=== PATIENT | female | born 1945 | race Caucasian/White ===

== ENCOUNTER → 2019-03-13 13:57 | Outpatient (BNVA) | payer MEDICARE, BC, SELFPAY | PROVIDERS: PCP Family Medicine; Visit Provider Family Medicine | DX: J84.9 Interstitial pulmonary disease, unspecified (principal); E04.1 Nontoxic single thyroid nodule; E11.9 Type 2 diabetes mellitus without complications; C44.91 Basal cell carcinoma of skin, unspecified | CPT/HCPCS: 36415; 80053; 83036; 84439; 84443 ==

== ENCOUNTER → 2019-03-20 15:57 | Outpatient (BNVA) | payer MEDICARE, BC, SELFPAY | PROVIDERS: PCP Family Medicine; Visit Provider Family Medicine | DX: R09.02 Hypoxemia (principal); J84.9 Interstitial pulmonary disease, unspecified | CPT/HCPCS: 80053; 84439; 84443 ==

== ENCOUNTER 2019-03-28 15:14 | Outpatient (CLI) | payer MEDICARE, BC, SELFPAY ==
--- NOTE | 2019-03-28 15:45 | US_ITS ---
WS: [id number] ULTRASOUND THYROID TECHNIQUE: Ultrasound of the thyroid. CLINICAL INFORMATION: Thyroid nodule COMPARISON: None. FINDINGS: Thyroid: Right and left thyroid lobes are normal in size and heterogeneous in echotexture. Right thyroid lobe: 4.9 cm x 1.7 cm x 3.1 cm 3 hypoechoic subcentimeter nodules the largest measuring 6.6 x 4.3 x 4.5 mm Left thyroid lobe: 4.7 cm x 1.7 cm x 1.8 cm. 2 hypoechoic slightly complex nodules measuring 9.3 x 5.7 x 0.4 mm and 9.3 x 6.0 x 6.2 mm Isthmus: 0.4 mm. Cervical lymphadenopathy: None. US/US thyroid 24177 IMPRESSION: 1. A few small bilateral thyroid nodules largest in the left measuring 9.3 x 6 .0 x6.2 mm. Recommend 12 month follow-up.
== END 2019-03-28 15:15 | disposition home or self-care (01) ==
LOC: RAD 15:16
PROVIDERS: Family Provider Family Medicine; Visit Provider Family Medicine
DX: E04.2 Nontoxic multinodular goiter (principal)
CPT/HCPCS: 76536

== ENCOUNTER → 2019-03-31 14:01 | Outpatient (BNVA) | payer MEDICARE, BC, SELFPAY | PROVIDERS: Family Provider Family Medicine; Visit Provider Family Medicine | DX: Z01.89 Encounter for other specified special examinations (principal); E11.9 Type 2 diabetes mellitus without complications; E04.1 Nontoxic single thyroid nodule; I10 Essential (primary) hypertension | CPT/HCPCS: 80053; 84439; 84443 ==

== ENCOUNTER → 2019-08-28 13:27 | Outpatient (BNVA) | payer MEDICARE, BC, SELFPAY | PROVIDERS: Family Provider Family Medicine; PCP Family Medicine; Visit Provider Family Medicine | DX: E11.9 Type 2 diabetes mellitus without complications (principal); J84.9 Interstitial pulmonary disease, unspecified | CPT/HCPCS: 83036 ==

== ENCOUNTER → 2019-11-07 10:48 | Outpatient (BNVA) | payer MEDICARE, BC, SELFPAY | PROVIDERS: Family Provider Family Medicine; PCP Family Medicine; Visit Provider Family Medicine | DX: K92.1 Melena (principal) | CPT/HCPCS: G0328 ==

== ENCOUNTER → 2019-12-08 16:48 | Outpatient (BNVA) | payer MEDICARE, BC, SELFPAY | PROVIDERS: PCP Family Medicine; Visit Provider Surgery | DX: Z20.828 Contact with and (suspected) exposure to other viral communicable diseases (principal) | CPT/HCPCS: 87635 ==

== ENCOUNTER 2019-12-12 07:55 | Day surgery (SDC) | payer MEDICARE, BC, SELFPAY ==
[2019-12-12 09:11] VITALS: BP 135/92; PULSE 109; RESP 20; TEMP 36; O2SAT 92
[2019-12-12] MEDS: sodium chloride 0.9% 1,000 ML 30 ML IV (09:22)
[2019-12-12 09:24] LABS: Glucose Point of Care 131 mg/dL (70-110)
--- NOTE | 2019-12-12 09:24 | P.ANESASSM_ITS ---
Pre-Anesthetic Assessment Pre-Anesthetic Assessment: Height/Weight: Height 1.47 m Weight 60.781 kg Temp Pulse Resp BP Pulse Ox 96.8 F L 109 H 20 H 135/92 92 12/12/19 09:11 12/12/19 09:11 12/12/19 09:11 12/12/19 09:11 12/12/19 09:11 Preop Diagnosis: hematochezia Proposed Procedure: Operation Date: 12/12/19 09:30 Proposed Procedures p Colonoscopy 70180 K92.1(Not Applicable) - Larry Taylor MD Familial anesthetic complications: none Was Beta Lacey taken within 24 hours: N/A Last intake: Intake Last Liquid Date 12/11/19 Last Liquid Time 16:00 Last Solid Date 12/10/19 Last Solid Time 17:00 Social: Social History: No alcohol and No tobacco Exam: Pre-Anes Outpt Exam: alert, oriented x 3, clear to auscultation bilaterally and regular rate & rhythm Airway: Cervical ROM: WNL MP: 4 Dentition: Full Additional comments: small mouth opening Pulmonary: Comments: wears oxygen at night (3 L NC) d/t recent unknown virus that affected her lungs (this was in february, my lungs looked like ground glass. no need for intubation). In june ultrasonic tester told her she was fine. CV/HEM: CV/HEM: HTN Metabolic: Metabolic: DM and Thyroid (nodules) Anesthetic Plan: ASA status: 3 Anesthesia: MAC Risk of > 500 ml blood loss (7ml/kg in children): No Meds/Allergies Current Medications: Current Medications Generic Name Dose Route Start Last Admin Trade Name Freq PRN Reason Stop Dose Admin Sodium Chloride 1,000 mls @ 30 ml s/hr 12/12/19 08:15 12/12/19 09:22 Sodium Chloride 0.9% IV 12/13/19 08:14 30 mls/hr .Q24H HECTOR Administration PFSH Anesthesia PFSH: Medical History Interstitial lung disease Thyroid nodule Type 2 diabetes mellitus Surgical History History of 2 sections History of carpal tunnel surgery bilateral Family History Mother No problems noted. Father CAD (coronary artery disease) Social History Smoking and tobacco status: never smoked Alcohol intake: current Alcohol intake frequency: holidays/special occasions only Alcohol type: hard liquor Data Anesthesia Other Labs: Laboratory Results - last 48 hr 12/12/19 09:20 POC Glucose 131 Cardiac Studies: No Data to Display
--- NOTE | 2019-12-12 09:47 | W.PM.OPSUD ---
Surgery/Procedure H&P Update DATE OF PROCEDURE: December 12, 2019 DATE H&P PERFORMED: 11/17/19 H&P UPDATE INFORMATION: I have reviewed H&P completed within last 30 days, I have examined patient prior to procedure and No changes to prior documentation PREOP DIAGNOSIS: hematochezia PLANNED PROCEDURE: Operation Date: 12/12/19 09:30 Proposed Procedures p Colonoscopy 05701 K92.1(Not Applicable) - Larry Taylor MD
[2019-12-12 10:41] VITALS: BP 155/76; PULSE 92; RESP 18; TEMP 36.4; O2SAT 96
[2019-12-12 10:57] VITALS: BP 128/81; PULSE 92; RESP 16; O2SAT 93
--- NOTE | 2019-12-12 11:05 | ANE.PACU2 ---
Inpatient post-anesthesia follow up: Airway intact: Yes Vital signs: Temperature 97.5 F Pulse Rate 92 Respiratory Rate 16 Blood Pressure 128/81 Pulse Oximetry 93 Oxygen Delivery Me thod Room Air Oxygen Flow Rate Fraction of Inspir ed Oxygen Hydration adequate: Yes Nausea and vomiting: No Pain level: 1 Mental status: Baseline
== END 2019-12-12 11:08 | disposition home or self-care (01) ==
PROVIDERS: PCP Family Medicine; Visit Provider Surgery
PROC: 0DJD8ZZ Inspection of Lower Intestinal Tract, Via Natural or Artificial Opening Endoscopic (ICD-10-PCS; CPT 45378; principal; 2019-12-12 09:30)
DX: K92.1 Melena (principal); D12.2 Benign neoplasm of ascending colon; K57.30 Diverticulosis of large intestine without perforation or abscess without bleeding; K64.8 Other hemorrhoids; Z99.81 Dependence on supplemental oxygen; I10 Essential (primary) hypertension; E11.9 Type 2 diabetes mellitus without complications; Z79.84 Long term (current) use of oral hypoglycemic drugs
CPT/HCPCS: 12345; 36416; 45385; 82962; 88305; J2704; J7030

== ENCOUNTER → 2020-02-15 16:12 | Outpatient (BNVA) | payer MEDICARE, BC, SELFPAY | PROVIDERS: PCP Family Medicine; Visit Provider Family Medicine | DX: E11.9 Type 2 diabetes mellitus without complications (principal) | CPT/HCPCS: 83036 ==

== ENCOUNTER → 2020-03-13 14:27 | Outpatient (BNVA) | payer MEDICARE, BC, SELFPAY | PROVIDERS: PCP Family Medicine; Visit Provider Internal Medicine Cardiovascular Disease | DX: R06.00 Dyspnea, unspecified (principal); R06.02 Shortness of breath; I10 Essential (primary) hypertension | CPT/HCPCS: 80053; 83735; 83880; 85025 ==

== ENCOUNTER → 2020-03-25 13:04 | Outpatient (BNVA) | payer MEDICARE, BC, SELFPAY | PROVIDERS: PCP Family Medicine; Visit Provider Internal Medicine Cardiovascular Disease | DX: I10 Essential (primary) hypertension (principal); R06.00 Dyspnea, unspecified | CPT/HCPCS: 80048; 83735; 83880 ==

== ENCOUNTER 2020-03-28 14:48 | Outpatient (CLI) | payer MEDICARE, BC, SELFPAY ==
--- NOTE | 2020-03-28 15:00 | USCV_ITS ---
Eddie Dumont Age: 74 Gender: F : 1945 Exam Date: 03/28/2020 15:10 Ordering Phys: Santa Sewell MD ([email or web address]) Technologist: Pradeep Romero Exam Location: [facility] [place] Indication: DYSPNEA BP: 176 / 72 HR: 65 Rhythm: Sinus Technical Quality: Fair MEASUREMENTS (Male / Female) Normal Values 2D ECHO LV Diastolic Diameter PLAX 2.9 cm 4.2 - 5.9 / 3.9 - 5.3 cm LV Systolic Diameter PLAX 2.0 cm IVS Diastolic Thickness 1.1 cm 0.6 - 1.0 / 0.6 - 0.9 cm IVS Systolic Thickness 1.7 cm LVPW Diastolic Thickness 1.2 cm 0.6 - 1.0 / 0.6 - 0.9 cm LVPW Systolic Thickness 1.4 cm LVOT Diameter 2.0 cm LV Ejection Fraction 2D Teich 60.5 % LV Ejection Fraction MOD 2C 67.6 % LV Ejection Fraction 2C AL 69.4 % LA Diameter 2.7 cm LA Width 2.9 cm LA Height 3.7 cm RA Width 2.5 cm RA Height 3.5 cm Aorta at Sinotubular Diameter 2.0 cm M-MODE LV Diastolic Diameter MM 2.8 cm 4.2 - 5.9 / 3.9 - 5.3 cm LV Systolic Diameter MM 1.9 cm LV Ejection Fraction MM Teich 64.5 % IVS Diastolic Thickness MM 1.5 cm 0.6 - 1.0 / 0.6 - 0.9 cm IVS Systolic Thickness MM 1.5 cm LVPW Diastolic Thickness MM 1.7 cm 0.6 - 1.0 / 0.6 - 0.9 cm LVPW Systolic Thickness MM 2.2 cm Aortic Annulus Diameter 2.3 cm LA Ao Ratio MM 1.3 MV E Point Septal Separation 0.3 cm DOPPLER AV Peak Velocity 134.0 cm/s LVOT Peak Velocity 99.0 cm/s AV Area Cont Eq vti 2.5 cm squared AV Area Cont Eq pk 2.4 cm squared MV Area PHT 3.6 cm squared Mitral E to A Ratio 0.7 MV E' Velocity 63.0 cm/s TR Peak Velocity 142.0 cm/s TR Peak Gradient 8.1 mmHg PV Peak Velocity 110.0 cm/s RV Acceleration Time 0.1 s RV Ejection Time 0.2 s RV AcT/ET 0.3 FINDINGS Left Ventricle Normal left ventricular size, systolic function and wall thickness, with no regional wall motion abnormalities. Left ventricular ejection fraction is estimated at 65-70 %. Grade I diastolic dysfunction (abnormal relaxation filling pattern), normal to mildly elevated filling pressures. Right Ventricle Normal right ventricular size and systolic function. Right ventricular systolic pressure 11 mmHg. Right Atrium Normal right atrial size. Left Atrium Mildly increased left atrial size. Mitral Valve Mild mitral annular calcification. Mildly thickened mitral valve. No mitral valve stenosis. Trace mitral valve regurgitation. Aortic Valve Aortic valve not well visualized. No aortic valve stenosis. No aortic valve regurgitation. Tricuspid Valve Structurally normal tricuspid valve. No tricuspid valve stenosis. Trace tricuspid valve regurgitation. Pulmonic Valve Structurally normal pulmonic valve. No pulmonary valve stenosis. No significant pulmonary valve regurgitation. Pericardium No pericardial effusion. Echo free space anterior to the right ventricle likely represents a fat pad. Aorta Normal-sized aortic root. Normal-sized inferior vena cava. CONCLUSIONS 1. Normal left ventricular size, systolic function and wall thickness, with no regional wall motion abnormalities. Left ventricular ejection fraction is estimated at 65-70 %. Grade I diastolic dysfunction (abnormal relaxation filling pattern), normal to mildly elevated filling pressures. 2. Normal right ventricular size and systolic function. 3. No significant valvular abnormality. 4. Normal pulmonary artery pressure. 5. No prior similar studies to compare. Santa Sewell MD (Electronically Signed) Final Date: 03 April 2020 10:31 S
== END 2020-03-28 14:49 | disposition home or self-care (01) ==
PROVIDERS: PCP Family Medicine; Visit Provider Internal Medicine Cardiovascular Disease
DX: R06.00 Dyspnea, unspecified (principal)
CPT/HCPCS: 93306

== ENCOUNTER 2020-05-29 07:59 | Outpatient (CLI) | payer MEDICARE, BC, SELFPAY ==
[2020-05-29 08:11] VITALS: BMI 27.1
--- NOTE | 2020-05-29 08:16 | ECG_ITS ---
[facility] Test Date: 2020-05-29 Pat Name: Eddie Dumont Department: Room: Gender: Female Lens Inspector: Olamide Boothe : 1945 Requested By: Santa Sewell Order Number: [id number] Harsh MD: Santa Sewell M.D. Interpretive Statements NAME OF STUDY: EXERCISE SESTAMIBI STRESS TEST INDICATION: Chest Pain Baseline blood pressure of 195/95 mm Hg, heart rate 85 beats per minute and oxygen saturation 91%. EKG showed normal sinus rhythm, left anterior fascicular block. Possible old anteroseptal infarct. The patient exercised for 2 minutes 43 seconds on a standard Cristo protocol. Patient attained a maximum heart rate of 135 beats per minute(92% of the maximum predicted heart rate) with a blood pressure at the peak exercise of 207/59 mmHg mm Hg and oxygen saturation 85%. The EKG at the peak exercise revealed sinus tachycardia with no significant ST-T wave changes. Patient did not have any chest pain or any significant arrhythmis with the exercise During the recovery phase, there were no new changes. Blood pressure at the end of the recovery phase was 177/88 mm Hg with a heart rate of 100 beats per minute and oxygen saturation 94%. CONCLUSION: 1. Normal EKG response to treadmill exercise. 2. No exercise-induced chest pain or cardiac arrhythmia 3. Decreased exercise tolerance, attained a maximum of 4.6 METs. Maximum VO2 of 16.1 mL/kg/min. 4. Baseline hypertension with normal response to exercise. Patient's oxygen saturation did decrease to 85% at peak exercise. 5. Perfusion scan will be documented separately. Electronically Signed On 05-29-2020 17:19:16 CDT by Santa Sewell M.D. [id number]
--- NOTE | 2020-05-29 08:17 | NMCV_ITS ---
NM terrance perf SPECT r/s* [id number] Eddie Dumont Age: 75 Gender: F : 1945 Exam Date: 05/29/2020 08:17 Ordering Phys: Santa Sewell MD ([email or web address]) Technologist: DEWAYNE Malave Exam Location: [facility] Indications: DYSPNEA STRESS TEST [facility] IMAGE PROTOCOL Rest/Stress 1 Exercise Day Radiopharmaceutical Dose (mCi) Administration Site Administered by Rest: Tc-99m 10.3 IV DEWAYNE Jeffers Sestamibi Stress:Tc-99m 32.9 IV DEWAYNE Jeffers Sestamibi Rest: 29-May-2020 60 Discovery 630 Stress: 29-May-2020 30 Discovery 630 Radiopharmaceutical was injected at 87% maximum heart rate. Images obtained in supine and prone position. SPECT RESULTS Technical Quality: Excellent Raw Data Analysis: Normal Image Corrections: No attenuation or motion correction applied Summed Stress Score: 0 Summed Rest Score: 0 Summed Difference Score: 0 PERFUSION FINDINGS SPECT images demonstrate homogeneous tracer distribution throughout the myocardium. FUNCTIONAL RESULTS (calculated via Gated SPECT) Stress Image LV EF (%): 87 Stress EDV (mL):30 TID: 0.77 Stress ESV (mL):4 FUNCTIONAL FINDINGS: The left ventricle is normal in size. Transient Ischemia Dilatation of 0.77. There is normal left ventricular systolic function. The left ventricular ejection fraction is hyperdynamic with a value of 87% with no regional wall motion abnormality. There is hyperdynamic left ventricular wall thickening. IMPRESSIONS 1. Myocardial perfusion imaging is normal. 2. Overall left ventricular systolic function is normal without regional wall motion abnormalities. 3. The left ventricular ejection fraction is hyperdynamic with a value of 87%. 4. Normal EKG response to exercise. Decreased exercise tolerance, exaggerated heart rate response and desaturation at peak exercise. Refer to separate report for details. 5. This study suggests a low likelihood of angiographically significant coronary artery disease. Santa Sewell MD (Electronically Signed) Final Date: 29 May 2020 17:22 S
[2020-05-29 10:08] VITALS: BP 192/74; PULSE 100
== END 2020-05-29 08:00 | disposition home or self-care (01) ==
LOC: CDL 08:00
PROVIDERS: PCP Family Medicine; Visit Provider Internal Medicine Cardiovascular Disease
DX: R06.00 Dyspnea, unspecified (principal); R07.9 Chest pain, unspecified
CPT/HCPCS: 78452; 93017; A9500

== ENCOUNTER → 2020-06-21 15:00 | Outpatient (BNVA) | payer MEDICARE, BC, SELFPAY | PROVIDERS: PCP Family Medicine; Visit Provider Internal Medicine Cardiovascular Disease | DX: Z20.822 Contact with and (suspected) exposure to COVID-19 (principal) | CPT/HCPCS: 87635 ==

== ENCOUNTER 2020-06-27 13:35 | Outpatient (CLI) | payer MEDICARE, BC, SELFPAY ==
--- NOTE | 2020-06-27 14:47 | PFTS_ITS ---
Date of Study:06/27/20 Date of Dictation: MECHANICS: Forced vital capacity (FVC) is reduced. Forced expiratory volume in one second (FEV1) is reduced. FEV1/FVC is normal. FLOW VOLUME LOOP: Narrow. LUNG VOLUMES: Total lung capacity (TLC) is increased. Residual volume (RV) is increased. DIFFUSING CAPACITY FOR CARBON MONOXIDE: Moderately reduced. INTERPRETATION: The pulmonary function tests are consistent with nonspecific ventilatory limitation. The prebronchodilator spirometry is consistent with moderately severe restriction, however, the total lung capacity is elevated. The patient likely has a combined obstructive and restrictive ventilatory defect. Postbronchodilator spirometry was not performed. Lung volumes are consistent with hyperinflation and air trapping. Gas exchange (DLCO) is moderately reduced. MTDD
== END 2020-06-27 13:36 | disposition home or self-care (01) ==
LOC: RT 13:37
PROVIDERS: PCP Family Medicine; Visit Provider Internal Medicine Cardiovascular Disease
DX: J84.9 Interstitial pulmonary disease, unspecified (principal); R09.02 Hypoxemia
CPT/HCPCS: 94010; 94726; 94729

== ENCOUNTER → 2020-08-19 11:12 | Outpatient (BNVA) | payer MEDICARE, BC, SELFPAY | PROVIDERS: PCP Family Medicine; Visit Provider Family Medicine | DX: E11.9 Type 2 diabetes mellitus without complications (principal); I10 Essential (primary) hypertension | CPT/HCPCS: 83036 ==

== ENCOUNTER → 2021-11-12 12:13 | Outpatient (BNVA) | payer MEDICARE, BC, SELFPAY | PROVIDERS: PCP Family Medicine; Visit Provider Nurse Practitioner Family | DX: E11.9 Type 2 diabetes mellitus without complications (principal); Z78.0 Asymptomatic menopausal state; M54.50 Low back pain, unspecified; R53.83 Other fatigue | CPT/HCPCS: 81000; 81003; 87086 ==

== ENCOUNTER 2021-12-11 13:31 | Outpatient (CLI) | payer MEDICARE, BC, SELFPAY ==
--- NOTE | 2021-12-11 14:22 | XRR_ITS ---
PROCEDURE INFORMATION: Exam: XR Lumbosacral Spine Exam date and time: 12/11/2021 2:28 PM Age: 76 years old Clinical indication: Low back pain; Patient HX: Pain in lower back for seven weeks. Burning sensation. Pain anteriorly around groin as well; Additional info: M54.50 - TECHNIQUE: Imaging protocol: Radiologic exam of the lumbosacral spine. Views: 2 or 3 views. COMPARISON: No relevant prior studies available. FINDINGS: Bones/joints: T12 and L1 vertebral body compression fractures without retropulsion of bony fragments, age indeterminate. Multilevel productive degenerative endplate changes throughout the spine. Mild to moderate multilevel disc space narrowing throughout the spine, greatest posteriorly. Minimal lumbar spine dextrocurvature. Soft tissues: Unremarkable. XR/XR lumbar spine 2-3V* [id number] IMPRESSION: 1. T12 and L1 vertebral body compression fractures without retropulsion of bony fragments, age indeterminate. 2. Multilevel productive degenerative endplate changes throughout the spine. 3. Mild to moderate multilevel disc space narrowing throughout the spine, greatest posteriorly. 4. Minimal lumbar spine dextrocurvature.
== END 2021-12-11 13:32 | disposition home or self-care (01) ==
PROVIDERS: PCP Family Medicine; Visit Provider Nurse Practitioner Family
DX: M54.50 Low back pain, unspecified (principal)
CPT/HCPCS: 72100

== ENCOUNTER → 2021-12-18 16:29 | Outpatient (BNVA) | payer MEDICARE, BC, SELFPAY | PROVIDERS: PCP Family Medicine; Visit Provider Physician Assistant | DX: M54.50 Low back pain, unspecified (principal); M79.605 Pain in left leg; M25.561 Pain in right knee; E11.9 Type 2 diabetes mellitus without complications | CPT/HCPCS: 73560; 73565; 99204; J0702; J3490 ==

== ENCOUNTER 2022-01-27 15:26 | Outpatient (CLI) | payer MEDICARE, BC, SELFPAY ==
--- NOTE | 2022-01-27 15:15 | MR_ITS ---
WS: [id number] MRI LUMBAR SPINE NONCONTRAST TECHNIQUE: Sagittal T1, T2 and STIR imaging. Axial T1 and T2 imaging. CLINICAL INFORMATION: lumbar pain COMPARISON: None. FINDINGS: Mild lumbar curve. Compression superior endplates at T12, L2, L3, and L5 with endplate edema. Chronic appearing anterior wedging at T12. Compression superior endplate at L1 has a more chronic appearance . Mild retropulsion at T12, L1, L2, and L3 with slight effacement of the ventral thecal sac. No high- grade central canal stenosis. Mild kyphosis at the T12 level. L1-L2: Mild annular bulging. Mild central canal stenosis. Impingement subarticular recess bilaterally . Moderate facet arthropathy. Foramen are patent. L2-L3: Mild annular bulging. Mild to moderate central canal stenosis. Impingement on the subarticular recess bilaterally. Moderate facet arthropathy. Mild bilateral foraminal narrowing. Tiny LEFT annula r fissure. Small LEFT foraminal protrusion. L3-L4: Mild annular bulging. Mild central canal stenosis. Impingement on the traversing LEFT greater than RIGHT L4 nerve roots. Mild LEFT foraminal narrowing. Mild facet arthropathy. L4-L5: Mild annular bulging with slight effacement of ventral thecal sac. Slight impingement traversi ng L5 nerve roots bilaterally. Mild facet arthropathy. Mild LEFT foraminal narrowing. L5-S1: Mild annular bulging. Slight impingement on traversing RIGHT S1 nerve root. Foramen are patent . Mild facet arthropathy. Visualized pelvic bony structures: Normal. Paravertebral soft tissues: Normal. Adrenal glands are normal. Small LEFT renal cyst. MR/MR lumbar spine wo con* [id number] IMPRESSION: 1. Mild lumbar curve. Mild acute compression superior endplates at T12, L2, L3 , and L5 with edema. 2. Minimal retropulsion T12, L2, and L3 with slight effacement of ventral thec al sac and mild central canal stenosis. Mild to moderate central canal stenosis L2-L3. 3. Mild chronic appearing compression superior endplate L1. 4. Mild central canal stenosis L1-L2, L3-L4, and L4-L5. Mild to moderate centr al canal stenosis L2-L3. 5. Multilevel mild foraminal narrowing described above.
== END 2022-01-27 15:27 | disposition home or self-care (01) ==
LOC: RAD 15:30
PROVIDERS: PCP Family Medicine; Visit Provider Physician Assistant
DX: M54.50 Low back pain, unspecified (principal); M79.605 Pain in left leg; M48.061 Spinal stenosis, lumbar region without neurogenic claudication
CPT/HCPCS: 72148

== ENCOUNTER → 2022-02-10 15:44 | Outpatient (BNVA) | payer MEDICARE, BC, SELFPAY | PROVIDERS: PCP Family Medicine; Visit Provider Physician Assistant | DX: S32.000A Wedge compression fracture of unspecified lumbar vertebra, initial encounter for closed fracture (principal) | CPT/HCPCS: 99213 ==

== ENCOUNTER 2022-02-16 05:44 | Day surgery (SDC) | payer MEDICARE, BC, SELFPAY ==
[2022-02-13 13:12] VITALS: BMI 30.8
--- NOTE | 2022-02-13 13:41 | ECG_ITS ---
[facility] Test Date: 2022-02-13 Pat Name: Eddie Dumont Department: Room: Gender: Female Presser Cotton Ginning: : 1945 Requested By: Chuy Orr Order Number: [id number] Harsh MD: Rizwan Christopher M.D. Measurements Intervals [place] Rate: 90 P: 51 CO: 192 QRS: -64 QRSD: 113 T: 59 QT: 374 QTc: 460 Interpretive Statements SINUS RHYTHM LEFT ANTERIOR FASCICULAR BLOCK [QRS AXIS <= -45, QR IN I, RS IN II] POSSIBLE ANTERIOR MYOCARDIAL INFARCTION , PROBABLY OLD [30 ms Q WAVE IN V3/V4, OR R < 0.2 mV IN V4] No previous ECG available for comparison Electronically Signed On 02-14-2022 16:44:09 REMOVABLE PROSTHODONTIST by Rizwan Christopher M.D. [id number]
[2022-02-13 13:51] LABS: Basophils % 0.6 %; Eosinophils # 0.1 10^3/uL (0.0-0.8); Eosinophils % 1.7 %; Hematocrit 43.7 % (37.0-47.0); Hemoglobin 13.7 g/dL (11.5-15.3); Lymphocytes # 1.1 10^3/uL (0.8-4.8); Lymphocytes % 16.2 %; Mean Corpuscular HGB Conc 31.4 g/dL (30.0-36.0); Mean Corpuscular Hemoglobin 29.8 pg (28.0-34.0); Mean Platelet Volume 10.2 fL (7.4-10.4); Monocytes # 0.5 10^3/uL (0.2-0.9); Monocytes % 7.3 %; Neutrophils # 4.89 10^3/uL (1.8-7.7); Neutrophils % 73.7 %; Nucleated Red Blood Cells % 0 %; Platelet Count 162 10^3/cmm (130-400); White Blood Count 6.6 10^3/uL (4.0-10.0)
[2022-02-13 14:10] LABS: Anion Gap 14.1 (5-19); Blood Urea Nitrogen 22 mg/dL (8-23); Calcium 8.8 mg/dL (8.5-10.5); Carbon Dioxide 22 mmol/L (22-29); Chloride 108 mmol/L (98-107); Glucose 119 mg/dL (65-115); Osmolality Calculated 294 mOsm/kg (285-295); Potassium 4.1 mmol/L (3.5-5.1); Sodium 140 mmol/L (136-145)
--- NOTE | 2022-02-13 15:53 | ANES.PREANE2 ---
Pre-Anesthetic Assessment Height/Weight: Height 1.49 m Weight 68.039 kg Preop Diagnosis: hematochezia Operation Date: 02/16/22 07:00 Proposed Procedures p Kyphoplasty L2/L3/L5 92324/05338R4/S32.000A(Not Applicable) - Davy Cramer DO Familial anesthetic complications: none Was Beta Lacey taken within 24 hours: N/A Was Clonidine taken within 24 hours: N/A Social No alcohol and No tobacco Exam alert, oriented x 3, clear to auscultation bilaterally and regular rate & rhythm Airway Submandibular: within normal limits Cervical ROM: Other (limited) Mallampati: Class III Dentition: chipped Comments: Comments: Poor mouth opening CV/HEM Hypertension Metabolic Diabetes Mellitus Musc/skel Lower Back Pain and Osteoarthritis/DJD Anesthetic Plan ASA status: 2 Anesthesia: General Medications/Allergies Home Medications Medication Instructions Recorded Confirmed Last Taken Type blood sugar diagnostic (Accu-Chek #100 ea 03/23/19 02/10/22 Unknown Rx Yael Plus test strips) blood-glucose meter (Accu-Chek #1 ea 03/23/19 02/10/22 Unknown Rx Yael Plus Meter) ibuprofen 600 mg tablet 600 mg PO Q8H pain 5 days #15 tabs 11/12/21 02/10/22 Unknown Rx Allergies Allergy/AdvReac Type Severity Reaction Status Date / Time montelukast AdvReac Intermediate ADR-Vomitin Verified 02/13/22 13:10 g PFSH Anesthesia Medical History (Updated 02/10/22 @ 16:33 by Jim Aviles PA-C) Interstitial lung disease Thyroid nodule Type 2 diabetes mellitus Surgical History History of 2 sections History of carpal tunnel surgery bilateral Status post colonoscopy with polypectomy (12/12/19) Family History Mother Stroke Father CAD (coronary artery disease) Hx of CABG Myocardial infarction Social History Smoking and tobacco status: never smoked Alcohol intake: current Alcohol intake frequency: holidays/special occasions only Alcohol type: hard liquor Data Anesthesia 02/13/22 13:30 02/13/22 13:30 Short CBC 02/13/22 Range/Units 13:30 WBC 6.6 (4.0-10.0) 10^3/uL Hgb 13.7 (11.5-15.3) g/dL Hct 43.7 (37.0-47.0) % MCV 95.0 (81-99) fl Plt Count 162 (130-400) 10^3/cmm Neut % (Auto) 73.7 % Neut # (Auto) 4.89 (1.8-7.7) 10^3/uL BMP 02/13/22 13:30 Sodium 140 Potassium 4.1 Chloride 108 H Carbon Dioxide 22 BUN 22 Creatinine 1.0 H Glucose 119 H Calcium 8.8 Cardiac Studies: Echocardiogram Ultrasound 03/28/20 Sestamibi Stress Test (Cardiology) 05/29/20
[2022-02-16] VITALS (8 sets, daily range): BP systolic 138–180; BP diastolic 71–101; PULSE 83–95; RESP 18–24; TEMP 36.3–36.5; O2SAT 90–95
--- NOTE | 2022-02-16 05:54 | SC_ITS ---
WS: [id number] C-arm fluoroscopy for lumbar kyphoplasty, 02/16/2022 Clinical Data: Kyphoplasty L2, L3, L5 Comparison: None. Findings: Kyphoplasty material was injected into the L2, L3 and L5 vertebral bodies. SC/C-arm FL for Kyphoplasty Impression: Lumbar kyphoplasty.
--- NOTE | 2022-02-16 06:20 | W.PM.OPSUD ---
Surgery/Procedure H&P Update DATE OF PROCEDURE: February 16, 2022 DATE H&P PERFORMED: 02/10/22 H&P UPDATE INFORMATION: I have reviewed H&P completed within last 30 days, I have examined patient prior to procedure and No changes to prior documentation PREOP DIAGNOSIS: Compression fracture lumbar spine PLANNED PROCEDURE: Operation Date: 02/16/22 07:00 Proposed Procedures p Kyphoplasty L2/L3/L5 92194/11063U4/S32.000A(Not Applicable) - Davy Cramer DO
[2022-02-16] MEDS: sodium chloride 0.9% 1,000 ML 30 ML IV (06:26)
[2022-02-16 06:28] LABS: Glucose Point of Care 128 mg/dL (70-110)
--- NOTE | 2022-02-16 06:33 | ANES.PAUD2 ---
Pre-Anesthetic Update Pre-Anesthetic Assessment: Date of Surgery/Procedure: 02/16/22 Preop Diagnosis: Compression fracture lumbar spine Proposed Procedure: Operation Date: 02/16/22 07:00 Proposed Procedures p Kyphoplasty L2/L3/L5 [id number]/S32.000A(Not Applicable) - Davy Cramer, DO Any changes to Pre-Anesthetic Assessment?: No Changes from Pre-Anesthetic Assessment: none Last Intake: Intake Last Liquid Date 02/15/22 Last Liquid Time 17:00 Last Solid Date 02/15/22 Last Solid Time 17:00 Vitals: Temperature 97.3 F L 02/16/22 06:08 Temperature Source Temporal Artery S can 02/16/22 06:08 Pulse Rate 95 02/16/22 06:08 Pulse Rhythm 02/16/22 06:08 Pulse Strength 3+ Normal 02/16/22 06:08 Respiratory Rate 20 H 02/16/22 06:08 Blood Pressure 180/99 02/16/22 06:08 Blood Pressure Breanna n 126 02/16/22 06:08 Pulse Oximetry 95 02/16/22 06:08 Oxygen Delivery Me thod 02/16/22 06:08 Oxygen Flow Rate 2 02/16/22 06:08 Exam: Pre-Anes Outpt Exam: alert, oriented x 3 and regular rate & rhythm Additional Exam Findings (including area of procedure): faint b/l wheeze Cardiac Studies: Echocardiogram Ultrasound 03/28/20 Sestamibi Stress Test (Cardiology) 05/29/20
[2022-02-16] MEDS: ceFAZolin 2,000 MG in sodium chloride 0.9% (plus) 50 ML 100 MG IV (07:00)
[2022-02-16] MEDS: iohexol 350 mg/mL 100 mL Btl 30 ML IV (07:26)
--- NOTE | 2022-02-16 08:11 | PM.OP ---
Operative Report Date of procedure: February 16, 2022 Pre-op diagnosis: Preop Diagnosis wedge traumatic osteoporotic Compression fracture lumbar spine L2, L3, L5 Post-op diagnosis: same Procedure done: 1. Kyphoplasty L2 2. Kyphoplasty L3 3. Kyphoplasty L5 Surgeon: Davy Cramer Hairspring Ii Inspector: Jim Aviles Hairspring Ii Inspector: The surgical pathologist, Jim Aviles, PAC was needed for his expertise with compression fractures. He was important and necessary throughout the procedure to complete in a safe and timely manner. He assisted with patient positioning prepping and draping tissue retraction suctioning of the operative field protection of the critical structures and tissue closure Estimated blood loss (mL): 10 Procedure: 1. Kyphoplasty L2 2. Kyphoplasty L3 3. Kyphoplasty L5 Is brought to the operative suite after undergoing anesthesia was placed in the prone position. All areas impingement well-padded. Patient was prepped and draped normal sterile fashion. Biplanar fluoroscopy was brought in. Identified the levels. 10 is brought to the L2 level first. The skin incision made on the lateral aspect of the left pedicle of L2. The awl was inserted followed by the drill followed by the balloon. Once this was completed then attention was brought to the L3 level. The skin incision made at the lateral aspect of the L3 pedicle and left the awl was inserted followed by the drill followed by the balloon balloon again was inflated. Next attention was brought to placing cement into the L2 level as well as the L3 level. Once the cement was felt to be a good fill in the vertebral body of L2 and L3 attention was then brought to the L5 level. Skin incision was made on the lateral aspect of the left pedicle. The awl was inserted followed by the drill followed by the balloon. On the L5 nerve the right side was also used at this point where it was larger and can get already crossed over the balloon. The skin incision is made over the right pedicle the awl was inserted the drill was inserted and then the balloon was inserted. Is once the vertebral body was filled then cement was inserted on both the right and left side of the L5 vertebral body. AP lateral fluoroscopy ensure that the cement was in good position on the L2-L3 and L5 vertebral bodies. Wounds were irrigated and skin was closed with nylon suture. Sterile dressings were applied patient was transferred to the PACU in stable condition.
--- NOTE | 2022-02-16 09:38 | SUR.PHASEII ---
patients bp has been high for duration of visit today, discussed with her about seeing pcp for elevated bp since she does not take anything currently.
[2022-02-16] MEDS: HYDROcodone-acetaminophen 5-325 mg Tablet 1 TAB PO (09:50)
--- NOTE | 2022-02-16 14:26 | ANE.PACU2 ---
Inpatient post-anesthesia follow up: Airway intact: Yes Vital signs: Temperature 97.4 F Pulse Rate 83 Respiratory Rate 18 Blood Pressure 156/101 Pulse Oximetry 93 Oxygen Delivery Me thod Nasal Cannula Oxygen Flow Rate 3 Fraction of Inspir ed Oxygen Hydration adequate: Yes Nausea and vomiting: No Pain level: 1 Mental status: Baseline
== END 2022-02-16 09:55 | disposition home or self-care (01) ==
PROVIDERS: Anesthesiology; PCP Family Medicine; Visit Provider Orthopaedic Surgery
PROC: (CPT 22514; principal; 2022-02-16 07:00)
DX: S32.020A Wedge compression fracture of second lumbar vertebra, initial encounter for closed fracture (principal); S32.030A Wedge compression fracture of third lumbar vertebra, initial encounter for closed fracture; S32.050A Wedge compression fracture of fifth lumbar vertebra, initial encounter for closed fracture; X58.XXXA Exposure to other specified factors, initial encounter; I10 Essential (primary) hypertension
CPT/HCPCS: 22514; 22515 ×2; 36416; 76000; 80048; 82962; 85025; 93005; J0690; J1100; J2405; J2704; J2710; J3010; J3490; J7030; Q9967

== ENCOUNTER → 2022-03-03 13:23 | Outpatient (BNVA) | payer MEDICARE, BC, SELFPAY | PROVIDERS: PCP Family Medicine; Visit Provider Orthopaedic Surgery | DX: Z47.89 Encounter for other orthopedic aftercare (principal) | CPT/HCPCS: 99024; 99212 ==